=== PATIENT | female | born 1955 | race Caucasian/White ===

== ENCOUNTER 2016-12-16 19:39 | Emergency (ER) | payer OTHER ==
[2016-12-16 18:04] LABS: BASOPHILS 0.2 %; BASOPHILS ABSOLUTE 0.03 10/3/uL (0.0-0.16); EOSINOPHILS 2.7 %; EOSINOPHILS ABSOLUTE 0.32 10/3/uL (0.0-0.53); HEMATOCRIT 32.6 % (36.0-48.0); HEMOGLOBIN 10.5 g/dL (12.0-16.0); IMMATURE GRANULOCYTES 0.2 %; IMMATURE GRANULOCYTES ABSOLUTE 0.02 10/3/uL (0.0-0.11); LYMPHOCYTES 16.5 %; LYMPHOCYTES ABSOLUTE 1.99 10/3/uL (0.67-4.30); MEAN CORPUS HGB CONC 32.2 g/dL (32.0-36.0); MEAN CORPUSCULAR HEMOGLOB 29.6 pg (26.0-34.0); MEAN CORPUSCULAR VOLUME 91.8 fL (80-100); MEAN PLATELET VOLUME 9.3 fL (9.2-13.0); MONOCYTES 5.7 %; MONOCYTES ABSOLUTE 0.68 10/3/uL (0.21-1.20); NEUTROPHILS 74.7 %; NEUTROPHILS ABSOLUTE 8.99 10/3/uL (2.02-8.40); PLATELET COUNT 203 10/3/uL (150-400); RBC DISTRIBUTION WIDTH 13.3 % (12.0-16.0); RED CELL COUNT 3.55 10/6/uL (4.0-5.6)
[2016-12-16 18:05] LABS: MANUAL DIFF NO %
[2016-12-16 18:20] LABS: A/G RATIO 0.8 (0.7-1.9); ALBUMIN 3.3 G/DL (3.5-5.0); BUN (BLOOD UREA NITROGEN) 13 MG/DL (6-23); CALCIUM, SERUM 8.8 MG/DL (8.5-10.4); CHLORIDE, SERUM 98 MMOL/L (96-112); CO2 (CARBON DIOXIDE) 30 MMOL/L (24-34); CREATININE 0.67 MG/DL (0.55-1.02); GFR AFRICAN AMERICAN 108 ML/MIN (>=60); GFR NON AFRICAN AMERICAN 94 ML/MIN (>=60); GLOBULIN 4.2 G/DL (2.5-4.1); SGOT(AST) 11 U/L (5-40); SGPT(ALT) 17 U/L (5-65); SODIUM, SERUM 136 MMOL/L (135-148); TOTAL BILIRUBIN 0.2 MG/DL (0-1.2); TOTAL PROTEIN 7.5 G/DL (6.0-8.5)
[2016-12-16 18:21] LABS: ALKALINE PHOSPHATASE 91 U/L (45-117); GLUCOSE, SERUM 93 MG/DL (60-99)
[~2016-12-16 19:39] MED LIST: ACET500CAP PO; ALEVE220 MG PO; BONTRIL PDM35 MG PO; CATAPRES2 TOP; CLOBETASOL0.051 TOP; CYMBALTA30 PO; FISH OIL PO; GLUCPH PO; LEVOTHYROXIN50 MCG PO; METHADONE10 MG/5 ML PO; MIRALAXPKT PO; MOBIC15 MG PO; NIZORALCRM TOP; NIZORSHAM TOP; NORV5 PO; SEROQUEL400 MG PO; XARELTO20 MG PO
[2017-05-06] MEDS ORDERED: CYMBALTA30 PO (13:43)
[2017-05-06] MEDS ORDERED: SYN075 PO (13:44)
[2017-05-06] MEDS ORDERED: MOBIC15 MG PO (13:44)
[2017-05-06] MEDS ORDERED: SEROQUEL400 MG PO (13:45)
[2017-05-06] MEDS ORDERED: PROAIR HFA INH (13:45)
[2017-05-06] MEDS ORDERED: XARELTO20 MG PO (13:46)
[2017-05-06] MEDS ORDERED: METHADONE10 MG/5 ML PO (13:48)
[2017-05-08] MEDS ORDERED: X25 PO (10:51)
[2017-05-08] MEDS ORDERED: PROTONIX PO (10:51)
== END 2016-12-16 20:58 | disposition home or self-care (01) ==
LOC: ER 19:39
PROVIDERS: Physician Assistant
DX: J18.9 Pneumonia, unspecified organism (principal); J44.9 Chronic obstructive pulmonary disease, unspecified; I10 Essential (primary) hypertension; F31.9 Bipolar disorder, unspecified; E11.9 Type 2 diabetes mellitus without complications; Z88.8 Allergy status to other drugs, medicaments and biological substances; Z79.899 Other long term (current) drug therapy
CPT/HCPCS: 71010; 71275; 80053; 83880; 85025; 87040; 94640; 96374; 99285; A9270-GY; Q9967

== ENCOUNTER 2016-12-20 10:20 | Emergency (ER) | payer OTHER, SELFPAY ==
[2016-12-20 11:22] LABS: BASOPHILS 0.3 %; BASOPHILS ABSOLUTE 0.02 10/3/uL (0.0-0.16); EOSINOPHILS 5.6 %; EOSINOPHILS ABSOLUTE 0.38 10/3/uL (0.0-0.53); HEMATOCRIT 34.8 % (36.0-48.0); IMMATURE GRANULOCYTES 0.3 %; IMMATURE GRANULOCYTES ABSOLUTE 0.02 10/3/uL (0.0-0.11); LYMPHOCYTES 32.7 %; LYMPHOCYTES ABSOLUTE 2.21 10/3/uL (0.67-4.30); MEAN CORPUS HGB CONC 31.6 g/dL (32.0-36.0); MEAN CORPUSCULAR HEMOGLOB 30.1 pg (26.0-34.0); MEAN PLATELET VOLUME 9.3 fL (9.2-13.0); MONOCYTES 6.8 %; MONOCYTES ABSOLUTE 0.46 10/3/uL (0.21-1.20); NEUTROPHILS 54.3 %; NEUTROPHILS ABSOLUTE 3.66 10/3/uL (2.02-8.40); PLATELET COUNT 228 10/3/uL (150-400); RBC DISTRIBUTION WIDTH 12.7 % (12.0-16.0); RED CELL COUNT 3.65 10/6/uL (4.0-5.6)
[2016-12-20 11:23] LABS: ER CBC TAT 0 Hrs 05 MinsNP; MANUAL DIFF NO %; MEAN CORPUSCULAR VOLUME 95.3 fL (80-100); WHITE BLOOD CELLS 6.8 10/3/uL (4.5-10.5)
[2016-12-20 11:40] LABS: BUN (BLOOD UREA NITROGEN) 14 MG/DL (6-23); CALCIUM, SERUM 8.8 MG/DL (8.5-10.4); CHEST PAIN PROFILE TAT 0 Hrs 22 Mins; CHLORIDE, SERUM 98 MMOL/L (96-112); CREATININE 0.69 MG/DL (0.55-1.02); GFR AFRICAN AMERICAN 107 ML/MIN (>=60); GFR NON AFRICAN AMERICAN 93 ML/MIN (>=60); GLUCOSE, SERUM 90 MG/DL (60-99); POTASSIUM, SERUM 4.7 MMOL/L (3.5-5.3); SODIUM, SERUM 139 MMOL/L (135-148); TROPONIN I <0.02 NG/ML (<0.05)
[2016-12-20 11:41] LABS: CO2 (CARBON DIOXIDE) 35 MMOL/L (24-34)
[2016-12-20 13:00] LABS: INTERNATIONAL NORMAL RATI 1.1 UNITS (-); PROTIME (NOT ORD) 14.4 SEC (12.0-14.5)
[2016-12-20 13:27] LABS: ASCORBIC ACID (UR NOT ORDER) 20 (NEG); BILIRUBIN, URINE NEGATIVE (NEG); ER URINALYSIS TAT 0 Hrs 15 Mins; KETONE, URINE NEGATIVE (NEG); LEUKOCYTE ESTERASE(NOT OR SMALL (NEG); NITRITE (URINE) NEG (NEG); WBC (NOT ORDERED) (RFLEX) 2 (0-5)
[2016-12-20 13:56] LABS: AMPHETAMINES (NOT ORD) NEG (NEG); BARBITURATES (NOT ORDERED NEG (NEG); BENZODIAZEPINES (NOT ORD) NEG (NEG); CANNABINOIDS (THC) NEG (NEG); COCAINE (NOT ORDERED) NEG (NEG); OPIATES POS (NEG); PHENCYCLIDINE(PCP) NEG (NEG); TRICYCLICS NEG (NEG)
[2017-05-06] MEDS ORDERED: CYMBALTA30 PO (13:43)
[2017-05-06] MEDS ORDERED: MOBIC15 MG PO (13:44)
[2017-05-06] MEDS ORDERED: SYN075 PO (13:44)
[2017-05-06] MEDS ORDERED: PROAIR HFA INH (13:45)
[2017-05-06] MEDS ORDERED: SEROQUEL400 MG PO (13:45)
[2017-05-06] MEDS ORDERED: XARELTO20 MG PO (13:46)
[2017-05-06] MEDS ORDERED: METHADONE10 MG/5 ML PO (13:48)
[2017-05-08] MEDS ORDERED: PROTONIX PO (10:51)
[2017-05-08] MEDS ORDERED: X25 PO (10:51)
== END 2016-12-20 14:00 | disposition home or self-care (01) ==
LOC: ER 10:20
PROVIDERS: Nurse Practitioner Family
DX: H53.8 Other visual disturbances (principal); D64.9 Anemia, unspecified; F32.9 Major depressive disorder, single episode, unspecified; E11.9 Type 2 diabetes mellitus without complications; Z88.8 Allergy status to other drugs, medicaments and biological substances; Z79.84 Long term (current) use of oral hypoglycemic drugs; Z79.899 Other long term (current) drug therapy
CPT/HCPCS: 70450; 71010; 80048; 80305; 81001; 83605; 83735; 83880; 84484; 85025; 85610; 85730; 87040; 87070; 87077; 87086; 87150; 87186; 87205; 93005; 94640; 96374; 99285; A9270-GY; J2930